=== PATIENT | male | born 1980 | race Two or more races ===

== ENCOUNTER 2021-05-16 19:17 | Emergency (ER) | payer OTHER, SELFPAY ==
--- NOTE | 2021-05-16 | ECG_ITS ---
Test Reason : DIZZINESS Blood Pressure : / mmHG Vent. Rate : 062 BPM Atrial Rate : 062 BPM P-R Int : 124 ms QRS Dur : 086 ms QT Int : 368 ms P-R-T Axes : 044 -07 031 degrees QTc Int : 373 ms Normal sinus rhythm Normal ECG No previous ECGs available Referred By: Generic ED Physician Electronically Signed By:ALIDA JURADO MD
[2021-05-16 19:24] VITALS: BP 132/80; BP 134/85; PULSE 67; PULSE 70; RESP 16; TEMP 36.9; O2SAT 100; BMI 22.8
[2021-05-16 19:58] LABS: Basophils Percent Auto 0.2 % (0-2); Eosinophils Percent Auto 0.8 % (0-4); Hematocrit 45.3 % (42.0-52.0); Hemoglobin 15.2 g/dl (14.0-18.0); Imm Gran Abs Auto 0.02 X10*3/uL (0.00-0.03); Imm Gran Pct Auto 0.4 % (0.0-0.4); Lymphocytes Absolute Auto 1.8 X10*3/uL (1.2-4.9); Lymphocytes Percent Auto 34.5 % (20-40); MANUAL DIFF FLAG NO; Mean Corpuscular HGB Conc 33.6 g/dl (31.0-36.0); Mean Corpuscular Hemoglobin 29.2 pg (27.0-33.0); Mean Corpuscular Volume 87.1 fL (80.0-98.0); Mean Platelet Volume 11.7 fL (9.4-12.4); Monocytes Absolute Auto 0.3 X10*3/uL (0.1-1.2); Monocytes Percent Auto 6.5 % (2-11); Neutrophils Percent Auto 57.6 % (45-73); Platelet Count 146 X10*3/uL (160-400); Red Cell Distribution Width 12.1 % (11.0-16.0); White Blood Count 5.2 X10*3/uL (4.8-10.8)
[2021-05-16 20:17] LABS: Troponin-I High Sensitivity < 3.5 ng/L (<3.5-35.0)
[2021-05-16 20:18] LABS: Alanine Aminotransferase 10 U/L (0-40); Albumin Level 4.6 g/dL (3.5-5.0); Alkaline Phosphatase 53 U/L (39-117); Anion Gap 11 (12-20); Aspartate Amino Transferase 17 U/L (5-37); Bilirubin Total 0.3 mg/dL (0.0-1.0); Blood Urea Nitrogen 16 mg/dL (9-16); Calcium 9.7 mg/dL (8.4-10.2); Carbon Dioxide 32 mmol/L (22-29); Chloride 102 mmol/L (96-108); Creatinine Clr Calc Pharmacy 103.8; Estimated Glomerular Filt Rate > 60; Glucose Random 118 mg/dL (60-115); Potassium 4.3 mmol/L (3.3-5.1); Sodium 141 mmol/L (135-145); Total Protein 7.9 g/dL (6.5-8.0)
--- NOTE | 2021-05-16 20:37 | PC.NURSE ---
RN assumed care at this time. Patient presents with . Patient reports dizziness with high blood pressure at home, no pain, reports chest discomfort but no pain . Reports that father has a hx of heart problems. Patient awaiting to see physician, will continue to monitor
[2021-05-16 20:43] VITALS: BP 125/76; BP 132/89; PULSE 62; PULSE 65
[2021-05-16 20:44] VITALS: BP 127/83; PULSE 82
--- NOTE | 2021-05-16 21:14 | ED_ITS ---
HPI - Dizziness General Chief Complaint: Dizziness Stated Complaint: dizziness Time Seen by Provider: 05/16/21 20:47 Source: patient and family (, [place]) Mode of arrival: EMS Limitations: no limitations History of Present Illness HPI Narrative: 40-year-old male who presents emergency department for evaluation of sudden onset of dizziness. The patient states that he was feeling fine throughout the day. He did eat lunch at around 14:30 hours. He then was watching TV until 16:00 hours when he got off the sofa to make dinner. States that he had a sudden onset of dizziness. He states that his vision was slightly blurry and the room was spinning. He also had some slight chest pain. He points to his sternum and describes the pain as a ?pain ?. The pain was mild and lasted several minutes. He states that he felt lethargic as well. His took his blood pressure with a wrist blood pressure cuff and the patient's systolic blood pressures ranged from 175-259. The called an ambulance. Paramedics found the patient's initial systolic blood pressure to be 160. The patient states that his dizziness seemed to persist and was worse with position change. He denied being ill in any way recently. He denied fever, chills, rhinorrhea, sore throat, cough, shortness of breath, dyspnea on exertion, headache, numbness or weakness. The patient is not vaccinated for COVID-19 and he does not know of any known exposures. His states that they have both been under significant stress secondary to their disabled autistic son turning 18 years old and making statements that have been upsetting to them. MD elicited complaint: dizziness and vertigo Onset (ago): minute(s) (Onset prior to arrival) Timing: sudden onset Severity: moderate Description: sense of movement and room spinning Context: change in body position History of similar symptoms: No Exacerbating factors: movement/ambulation, change in body position and position/lying down Relieving factors: remaining still Associated symptoms: chest pain Associated neuro symptoms: vision changes (Brief blurred vision on onset) Stroke scale total: 0 Related Data Allergies Allergy/AdvReac Type Severity Reaction Status Date / Time No Known Allergies Allergy Verified 05/16/21 19:24 Review of Systems Review of Systems: Yes all other systems are reviewed and are negative [facility] Past Medical History [facility] Narrative: Past medical history: None. Past social history: None. Social history: He denies tobacco, alcohol and drug use. He is his is here in the emergency department with him. 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 The son is had recent behavioral issues that has been very stressful to the patient and the patient's . Social History Social History Advance Directives: No Advance Directives Information Provided: Yes Physical Exam Vital Signs: Vital Signs: Last Vital Signs Temp 97.4 F 05/16/21 21:41 Pulse 62 05/16/21 21:41 Resp 16 05/16/21 21:41 BP 119/78 05/16/21 21:41 Pulse Ox 98 05/16/21 21:41 BMI result Body Mass Index 22.8 Const: General: cooperative and no acute distress Orientation/consciousness: oriented to person and oriented to place Limitations: no limitations HENMT: Head: Yes normal to inspection, Yes normocephalic and Yes atraumatic Ears: external ears normal General nose exam: Normal external nose present Face and sinus: Yes normal facial exam Mouth: Normal oral and palatal mucosa present Throat: Yes posterior oropharynx normal Eyes: General: appearance normal, both eyes and all related structures Pupils: Equal, round and reactive pupils present EOM: Nystagmus present (Only from a lying to sitting position with his head in the midline position) Neck: Neck: Yes normal visual inspection, Yes no lymphadenopathy, Yes trachea midline and Yes supple Chest: Chest palpation & inspection: normal inspection of the chest and normal palpation of entire chest wall Resp: Effort & Inspection: normal respiratory effort and able to speak in complete sentences Auscultation: clear to auscultation bilaterally Cardio: Rate: regular rate Rhythm: regular rhythm Heart sounds: S1 normal heart sound present, S2 normal heart sound present and no murmurs GI: Inspection: Yes normal to inspection Palpation (GI): Soft to palpation, nontender and no guarding Auscultation: normal bowel sounds : General: Yes no CVA tenderness Back/Spine/Pelvis: Back: no CVA tenderness Skin: General skin exam: no rashes or lesions noted Neuro: Other: Patient has left lateral nystagmus with his head in the midline position going from lying to sitting General: oriented to person and oriented to place Cranial nerves: Yes CN's II-XII intact bilaterally, Yes Equal, round and reactive pupils present and Yes Nystagmus present (Only from a lying to sitting position with his head in the midline position) Cognition (Neuro): normal cognition Motor exam (neuro): 5/5 motor strength present throughout Coordination: [id number] test normal and [id number] test normal Extrem: General: Yes normal to inspection Psych: Appearance: grossly normal Speech and movement: Normal speech and movement present Affect: normal affect Attitude: cooperative Thought process: Normal thought process present Thought content: Normal thought content present Course Course Course Narrative: 40-year-old male who presents emergency department for evaluation of sudden onset room spinning dizziness began just prior to arrival when he went from a sitting to standing position. Are patient has not been ill in any way prior to the onset of symptoms. The did document elevated blood pressures at home however here in the emergency department without any treatment the patient's blood pressures have been normal (134/85 and 126/83). The rest was vital signs were normal. Exam was unremarkable except for positional vertigo with nystag mus. Twelve EKG was unremarkable. Laboratory evaluation did reveal low platelet count of a [id number] but this is chronic according to his . Bicarb was elevated at 32 glucose was elevated at 118. Troponin was below detectable limits. Presentation is consistent with positional vertigo and I did discuss this with him and his . The requesting COVID-19 testing so I will send a COVID test on the patient and contact him with the result . The was advised to take meclizine 25 mg 3 times a day as needed for dizziness. He was given verbal and printed instructions and discharged home. 2203: COVID-19 test was negative MDM - Dizziness Lab Data Result diagrams: 05/16/21 19:53 05/16/21 19:53 Labs: Lab Results 05/16/21 05/16/21 05/16/21 Range/Units 19:53 19:53 19:53 WBC 5.2 (4.8-10.8) X10*3/uL RBC 5.20 (4.60-5.80) X10*6/uL Hgb 15.2 (14.0-18.0) g/dl Hct 45.3 (42.0-52.0) % MCV 87.1 (80.0-98.0) fL MCH 29.2 (27.0-33.0) pg MCHC 33.6 (31.0-36.0) g/dl RDW 12.1 (11.0-16.0) % Plt Count 146 L (160-400) X10*3/uL MPV 11.7 (9.4-12.4) fL Immature Gran % (Auto) 0.4 (0.0-0.4) % Neut % (Auto) 57.6 (45-73) % Lymph % (Auto) 34.5 (20-40) % Gooding % (Auto) 6.5 (2-11) % Eos % (Auto) 0.8 (0-4) % Baso % (Auto) 0.2 (0-2) % Lymph # (Auto) 1.8 (1.2-4.9) X10*3/uL Gooding # (Auto) 0.3 (0.1-1.2) X10*3/uL Eos # (Auto) 0.0 (0.0-0.4) X10*3/uL Baso # (Auto) 0.0 (0.0-0.2) X10*3/uL Abs Immat Gran (auto) 0.02 (0.00-0.03) X10*3/uL Absolute Neuts (auto) 3.0 (2.0-8.3) x10*3/uL Absolute Nucleated RBC 0.000 (0.0-0.012) X10*3/uL Nucleated RBC % (auto) 0.0 (0.0-0.2) /100WBC Sodium 141 (135-145) mmol/L Potassium 4.3 (3.3-5.1) mmol/L Chloride 102 (96-108) mmol/L Carbon Dioxide 32 H (22-29) mmol/L Anion Gap 11 L (12-20) BUN 16 (9-16) mg/dL Creatinine 1.00 (0.5-1.4) mg/dL Estim Creat Clear Calc 103.8 Estimated GFR > 60 Random Glucose 118 H (60-115) mg/dL Calcium 9.7 (8.4-10.2) mg/dL Total Bilirubin 0.3 (0.0-1.0) mg/dL AST 17 (5-37) U/L ALT 10 (0-40) U/L Alkaline Phosphatase 53 (39-117) U/L Troponin I High Sens < 3.5 (<3.5-35.0) ng/L Total Protein 7.9 (6.5-8.0) g/dL Albumin 4.6 (3.5-5.0) g/dL COVID-19 (ROMAN) (Negative) COVID-19 Clin Com 05/16/21 Range/Units 21:23 WBC (4.8-10.8) X10*3/uL RBC (4.60-5.80) X10*6/uL Hgb (14.0-18.0) g/dl Hct (42.0-52.0) % MCV (80.0-98.0) fL MCH (27.0-33.0) pg MCHC (31.0-36.0) g/dl RDW (11.0-16.0) % Plt Count (160-400) X10*3/uL MPV (9.4-12.4) fL Immature Gran % (Auto) (0.0-0.4) % Neut % (Auto) (45-73) % Lymph % (Auto) (20-40) % Gooding % (Auto) (2-11) % Eos % (Auto) (0-4) % Baso % (Auto) (0-2) % Lymph # (Auto) (1.2-4.9) X10*3/uL Gooding # (Auto) (0.1-1.2) X10*3/uL Eos # (Auto) (0.0-0.4) X10*3/uL Baso # (Auto) (0.0-0.2) X10*3/uL Abs Immat Gran (auto) (0.00-0.03) X10*3/uL Absolute Neuts (auto) (2.0-8.3) x10*3/uL Absolute Nucleated RBC (0.0-0.012) X10*3/uL Nucleated RBC % (auto) (0.0-0.2) /100WBC Sodium (135-145) mmol/L Potassium (3.3-5.1) mmol/L Chloride (96-108) mmol/L Carbon Dioxide (22-29) mmol/L Anion Gap (12-20) BUN (9-16) mg/dL Creatinine (0.5-1.4) mg/dL Estim Creat Clear Calc Estimated GFR Random Glucose (60-115) mg/dL Calcium (8.4-10.2) mg/dL Total Bilirubin (0.0-1.0) mg/dL AST (5-37) U/L ALT (0-40) U/L Alkaline Phosphatase (39-117) U/L Troponin I High Sens (<3.5-35.0) ng/L Total Protein (6.5-8.0) g/dL Albumin (3.5-5.0) g/dL COVID-19 (ROMAN) Negative (Negative) COVID-19 Clin Com See Note ECG Data Attestation: I personally reviewed and interpreted this ECG as follows: Interpretation: Twelve EKG revealed a normal sinus rhythm with a rate of 62, the patient had normal [place] interval, QRS duration QTC interval, no ST segment elevation, no ST segment depression, no T-wave abnormalities, no PACs or PVCs, this is a normal EKG. Discharge Plan Discharge Clinical Impression: Benign paroxysmal positional vertigo Patient Disposition: Home, Self-Care Instructions: Benign Paroxysmal Positional Vertigo (ED) Additional Instructions: Your blood work was normal except for a low platelet count of a 146,000 (normal is 150,000 up to 145,000). The rest of your blood work was normal including a nondetectable high sensitivity troponin (troponin is a marker of heart disease in you had no troponin in your blood which is very reassuring) Your EKG was normal as well. Your symptoms and presentation are consistent with benign positional vertigo, this sometimes is caused by a viral infection and usually gets better this usually gets better within a 1-2 week period. Often over the next 1-2 weeks she may experience episodes of dizziness a come on with position change. Take meclizine (Dramamine) 25 mg pills, 1 pill 3 times a day for the next 3 days for dizziness then as needed for dizziness. This medication will make you s leepy. Do not drive or work while taking this medication. Follow-up with your doctor in 2 days. Please return to the emergency department if your symptoms get worse or if you develop any symptoms that are concerning to you. We did test you for COVID-19 and I will text you with the result when it comes back this evening. Interventions: ED Discharge Assessment Last Done: 05/16/21 21:39 Discharge Date/Time: 05/16/21 21:54
[2021-05-16 21:41] VITALS: BP 119/78; PULSE 62; RESP 16; TEMP 36.3; O2SAT 98
[2021-05-16 21:46] LABS: COVID-19 Test Negative (Negative)
== END 2021-05-16 21:54 | disposition home or self-care (01) ==
PROVIDERS: Emergency Provider Emergency Medicine Emergency Medical Services
DX: H81.13 Benign paroxysmal vertigo, bilateral (principal); Z20.822 Contact with and (suspected) exposure to COVID-19; Z79.899 Other long term (current) drug therapy
CPT/HCPCS: 36415; 80053; 84484; 85025; 87635; 93005; 99284